=== PATIENT | male | born 1945 | race Caucasian/White ===

== ENCOUNTER 2016-07-28 18:09 | Emergency (ER) | payer MEDICARE ==
[~2016-07-28] VITALS: Ht 170.2 cm; Wt 88.5 kg
[2016-07-28 18:49] LABS: BASO % 1 % (0-3); EOS % 1 % (0-3); HEMATOCRIT 42.5 % (39.0-53.0); HEMOGLOBIN 14.4 g/dL (13.0-17.5); LYMPH # 1.4 x10^3/uL (1.0-4.8); LYMPH % 19 % (24-48); MEAN CORPUSCULAR HEMOGLOBIN 28 pg (25-35); MEAN CORPUSCULAR HGB CONC 34 g/dL (31-37); MEAN CORPUSCULAR VOLUME 81 fL (79-100); MONO % 7 % (0-9); NEUT % 73 % (31-73); PLATELET COUNT 209 x10^3/uL (140-400); RED BLOOD COUNT 5.24 x10^6/uL (4.30-5.70); RED CELL DISTRIBUTION WIDTH 14.7 % (11.5-14.5); WHITE BLOOD COUNT 7.6 x10^3/uL (4.0-11.0)
[2016-07-28 19:10] LABS: CALCIUM 9.1 mg/dL (8.5-10.1); CREATININE 1.1 mg/dL (0.7-1.3); GFR 65.8; POTASSIUM 4.2 mmol/L (3.5-5.1)
[2016-07-28 19:15] LABS: DIRECT BILIRUBIN 0.1 mg/dL (0.0-0.2); TOTAL BILIRUBIN 0.4 mg/dL (0.2-1.0); TOTAL PROTEIN 6.8 g/dL (6.4-8.2)
--- NOTE | 2016-07-28 19:24 | PHYS DOC ---
Past Medical History Past Medical History: Other Additional Past Medical Histor: FLUID ON R KNEE Past Surgical History: Tonsillectomy Additional Past Surgical Histo: L ELBOW SX Additional Information: CHEWS NICOTINE GUM Alcohol Use: Heavy Drug Use: None Adult General Chief Complaint Chief Complaint: RAPID HEART RATE HPI HPI 71-year-old male presenting to the emergency department today feeling intermittent palpitations since approximately 10:00 last night. He reports feeling a few extra heartbeats intermittently. He denies chest pain shortness of breath. Currently he denies any symptoms. Onset within 24 hours. Location chest. Duration intermittent. No alleviating or exacerbating factors. He denies the extra heartbeats lasting for more than a few seconds. Review of systems is negative for chest pain shortness of breath fevers chills nausea vomiting diaphoresis. All other review of systems is negative unless otherwise noted in history of present illness. Review of Systems Review of Systems SEE ABOVE. Allergies Allergies Allergies Coded Allergies Type Severity Reaction Last Updated Verified No Known Drug Allergies 05/16/15 No Physical Exam Physical Exam Constitutional: Well developed, well nourished, no acute distress, non-toxic appearance. [] HENT: Normocephalic, atraumatic, bilateral external ears normal, oropharynx moist, no oral exudates, nose normal. [] Eyes: PERRLA, EOMI, conjunctiva normal, no discharge. [] Neck: Normal range of motion, no tenderness, supple, no stridor. [] Cardiovascular:Heart rate regular rhythm, no murmur [] Lungs & Thorax: Bilateral breath sounds clear to auscultation [] Abdomen: Bowel sounds normal, soft, no tenderness, no masses, no pulsatile masses. [] Skin: Warm, dry, no erythema, no rash. [] Back: No tenderness, no CVA tenderness. [] Extremities: No tenderness, no cyanosis, no clubbing, ROM intact, no edema. [] Neurologic: Alert and oriented X 3, normal motor function, normal sensory function, no focal deficits noted. [] Psychologic: Affect normal, judgement normal, mood normal. [] Current Patient Data Vital Signs Vital Signs Date Time Temp Pulse Resp B/P Pulse Ox O2 Delivery O2 Flow Rate FiO2 07/28/16 19:56 68 18 178/81 96 Room Air 07/28/16 18:15 98.6 98.6 Lab Values Laboratory Tests Test 07/28/16 18:40 07/28/16 19:25 White Blood Count 7.6x10^3/uL (4.0-11.0) Red Blood Count 5.24x10^6/uL (4.30-5.70) Hemoglobin 14.4g/dL (13.0-17.5) Hematocrit 42.5% (39.0-53.0) Mean Corpuscular Volume 81fL (79-100) Mean Corpuscular Hemoglobin 28pg (25-35) Mean Corpuscular Hemoglobin Concent 34g/dL (31-37) Red Cell Distribution Width 14.7% (11.5-14.5) H Platelet Count 209x10^3/uL (140-400) Neutrophils (%) (Auto) 73% (31-73) Lymphocytes (%) (Auto) 19% (24-48) L Monocytes (%) (Auto) 7% (0-9) Eosinophils (%) (Auto) 1% (0-3) Basophils (%) (Auto) 1% (0-3) Neutrophils # (Auto) 5.5x10^3uL (1.8-7.7) Lymphocytes # (Auto) 1.4x10^3/uL (1.0-4.8) Monocytes # (Auto) 0.5x10^3/uL (0.0-1.1) Eosinophils # (Auto) 0.0x10^3/uL (0.0-0.7) Basophils # (Auto) 0.0x10^3/uL (0.0-0.2) Sodium Level 143mmol/L (136-145) Potassium Level 4.2mmol/L (3.5-5.1) Chloride Level 105mmol/L (98-107) Carbon Dioxide Level 30mmol/L (21-32) Anion Gap 8 (6-14) Blood Urea Nitrogen 15mg/dL (8-26) Creatinine 1.1mg/dL (0.7-1.3) Estimated GFR (Cockcroft-Gault) 65.8 Glucose Level 158mg/dL (70-99) H Calcium Level 9.1mg/dL (8.5-10.1) Total Bilirubin 0.4mg/dL (0.2-1.0) Direct Bilirubin 0.1mg/dL (0.0-0.2) Aspartate Amino Transferase (AST) 19U/L (15-37) Alanine Aminotransferase (ALT) 21U/L (16-63) Alkaline Phosphatase 70U/L (46-116) Troponin I Quantitative < 0.017ng/mL (0.000-0.055) Total Protein 6.8g/dL (6.4-8.2) Albumin 4.0g/dL (3.4-5.0) Lipase 137U/L (73-393) Urine Collection Type Unknown Urine Color Yellow Urine Clarity Clear Urine pH 7.0 Urine Specific [place] <=1.005 Urine Protein Negativemg/dL (NEG-TRACE) Urine Glucose (UA) Negativemg/dL (NEG) Urine Ketones (Stick) Negativemg/dL (NEG) Urine Blood Negative (NEG) Urine Nitrite Negative (NEG) Urine Bilirubin Negative (NEG) Urine Urobilinogen Dipstick 0.2mg/dL (0.2 mg/dL) Urine Leukocyte Esterase Negative (NEG) Urine RBC Occ/HPF (0-2) Urine WBC 0/HPF (0-4) Urine Squamous Epithelial Cells Occ/LPF Urine Bacteria 0/HPF (0-FEW) Laboratory Tests 07/28/16 18:40 Laboratory Tests 07/28/16 18:40 EKG EKG [] Radiology/Procedures Radiology/Procedures [] Course & Med Decision Making Course & Med Decision Making Pertinent Labs and Imaging studies reviewed. (See chart for details) [] 71-year-old male presenting to the emergency department today with intermittent palpitations. Vital signs showed hypertension otherwise unremarkable. The patient denied any hematuria vision changes or any symptomatology concerning for end organ dysfunction. Pertinent physical exam showed normal physical exam. EKG unremarkable. Chest x-ray showed no obvious infiltrate or pneumothorax. Blood work obtained which showed normal CBC normal urinalysis chemistry panel unremarkable. The patient was on telemetry monitoring for approximately 2 hours. No evidence of PACs or PVCs noted. I recommended the patient follow up with his primary care physician for possible Holter monitoring. Dragon Disclaimer Dragon Disclaimer This electronic medical record was generated, in whole or in part, using a voice recognition dictation system. Departure Departure Impression: Primary Impression: Palpitations Disposition: HOME, SELF-CARE Condition: STABLE Referrals: DELISA BROWN (PCP) Patient Instructions: Palpitations Additional Instructions: Thank you for allowing us to participate in your care today. Followup with your primary care physician in 2-3 days if your symptoms do not improve. If you do not have a primary care provider you can ask for a list of our primary care providers. Return to the emergency department you have any new or concerning findings. This should be evaluated by the primary care physician and any necessary consulting services for continued management within a few days after discharge. Return to emergency room if you have any new or concerning symptoms including but not limited to fever, chills, nausea, vomiting, intractable pain, any new rashes, chest pain, shortness of air, uncontrolled bleeding, difficulty breathing, and/or vision loss. DANGELO CHU MD Jul 28, 2016 19:24
[2016-07-28 19:36] LABS: BILIRUBIN,URINE NEGATIVE (NEG); GLUCOSE,URINE NEGATIVE (NEG); NITRITE,URINE NEGATIVE (NEG); PROTEIN,URINE NEGATIVE (NEG-TRACE); UROBILINOGEN,URINE 0.2 mg/dL (0.2 mg/dL)
[2016-07-28 19:51] LABS: BACTERIA,URINE 0 /HPF (0-FEW); RBC,URINE OCC /HPF (0-2); SQUAMOUS EPITHELIAL CELL,UR OCC /LPF; WBC,URINE 0 /HPF (0-4)
[2016-07-28 20:56] VITALS: BP 172/85
--- NOTE | 2016-07-29 06:27 | EKG ---
[facility] [address] [place] [address] Test Date: 2016-07-28 Test Time: 18:19:45 Pat Name: KAILA ULLOA Department: Room: Gender: M Cotton Inspector: : 1945 Requested By: DANGELO CHU Order Number: [id number] Reading MD: Measurements Intervals Gray Rate: 82 P: 34 OH: 146 QRS: 27 QRSD: 86 T: 51 QT: 390 QTc: 459 Interpretive Statements SINUS RHYTHM NORMAL ECG RI6.01 Unconfirmed report No previous ECG available for comparison
--- NOTE | 2016-07-29 08:44 | RAD ---
EXAM: Chest one view. HISTORY: Tachycardia. COMPARISON: 05/16/2015. FINDINGS: A frontal view of the chest is obtained. There are no confluent infiltrates. There is no pneumothorax or pleural effusion. The heart is not enlarged. There are atherosclerotic calcifications of the aorta. IMPRESSION: 1. No confluent infiltrates.
== END 2016-07-28 21:10 | disposition home or self-care (01) ==
LOC: ER 18:16
DX: R00.2 Palpitations (principal); R00.0 Tachycardia, unspecified; F17.220 Nicotine dependence, chewing tobacco, uncomplicated; F10.10 Alcohol abuse, uncomplicated
CPT/HCPCS: 36415; 71010; 80048; 80076; 81001; 83690; 84484; 85027; 93005; 99285-25

== ENCOUNTER 2020-02-28 13:13 | Emergency (ER) | payer MEDICARE ==
[~2020-02-28] VITALS: Ht 167.6 cm; Wt 81.8 kg
[~2020-02-28 13:13] MED LIST: AMLO5TAB10 PO; ASPI-886 PO; FLEC50TA PO; MECL-75 PO; METO-239 PO
--- NOTE | 2020-02-28 15:31 | ED.ADGEN ---
Past Medical History Past Medical History: A-Fib, Hypertension, Kidney Stone, Other Additional Past Medical Histor: FLUID ON R KNEE, VERTIGO Past Surgical History: Tonsillectomy Additional Past Surgical Histo: L ELBOW SX Smoking Status: Former Smoker Alcohol Use: Heavy Drug Use: None Adult General Chief Complaint Chief Complaint: Palpitations HPI HPI Patient is a 74 year old male with irregular heartbeat. He was discharged from the hospital for paroxysmal atrial fibrillation normal sinus rhythm yesterday. Has medications changed by cardiology. Was previously on 50 of metoprolol twice daily which was reduced to 25 mg twice daily started on flecainide. Patient said he felt an irregular heartbeat starting around 1230. He states that he has not had any diaphoresis, lightheadedness, chest pain, shortness of breath. Review of Systems Review of Systems Constitutional: Denies fever or chills. [] Eyes: Denies change in visual acuity. [] HENT: Denies nasal congestion or sore throat. [] Respiratory: Denies cough or shortness of breath. [] Cardiovascular: Denies chest pain or edema. [] Irregular heartbeat GI: Denies abdominal pain, nausea, vomiting, bloody stools or diarrhea. [] : Denies dysuria. [] Musculoskeletal: Denies back pain or joint pain. [] Integument: Denies rash. [] Neurologic: Denies headache, focal weakness or sensory changes. [] Endocrine: Denies polyuria or polydipsia. [] Lymphatic: Denies swollen glands. [] Psychiatric: Denies depression or anxiety. [] Allergies Allergies Allergies Coded Allergies Type Severity Reaction Last Updated Verified No Known Drug Allergies 05/16/15 No Physical Exam Physical Exam Constitutional: Well developed, well nourished, no acute distress, non-toxic appearance. [] HENT: Normocephalic, atraumatic, bilateral external ears normal, oropharynx moist, no oral exudates, nose normal. [] Eyes: PERRLA, EOMI, conjunctiva normal, no discharge. [] Neck: Normal range of motion, no tenderness, supple, no stridor. [] Cardiovascular: Irregularly irregular heartbeat Lungs & Thorax: Bilateral breath sounds clear to auscultation [] Abdomen: Bowel sounds normal, soft, no tenderness, no masses, no pulsatile masses. [] Skin: Warm, dry, no erythema, no rash. [] Back: No tenderness, no CVA tenderness. [] Extremities: No tenderness, no cyanosis, no clubbing, ROM intact, no edema. [] Neurologic: Alert and oriented X 3, normal motor function, normal sensory function, no focal deficits noted. [] Psychologic: Affect normal, judgement normal, mood normal. [] Current Patient Data Vital Signs Vital Signs Date Time Temp Pulse Resp B/P (MAP) Pulse Ox O2 Delivery O2 Flow Rate FiO2 02/28/20 13:25 98.7 92 15 162/82 (108) 99 Room Air 98.7 EKG EKG Atrial fibrillation, heart rate 127, no ST elevation or depression.[] Interpretation Time: 1328 Radiology/Procedures Radiology/Procedures [] Course & Med Decision Making Course & Med Decision Making Pertinent Labs and Imaging studies reviewed. (See chart for details) Patient is in A. fib now. Discussed with cardiology midlevel, Sophia, she will discussed the case with Dr. Maldonado and they will call the patient tomorrow. At this time she recommends increasing his metoprolol back to his previous 50 mill grams twice daily and continue his aspirin. Patient went ahead and took his second dose of 50 mg metoprolol for the day at 330 while in the ER. Discussed return to emergency department if symptoms worsen, but to expect a call and follow-up with cardiology tomorrow regarding anticoagulation. [] Dragon Disclaimer Dragon Disclaimer This electronic medical record was generated, in whole or in part, using a voice recognition dictation system. Departure Departure Impression: Primary Impression: Paroxysmal atrial fibrillation Disposition: 01 HOME, SELF-CARE Condition: STABLE Referrals: DELISA BROWN (PCP) Patient Instructions: Atrial Fibrillation, [id number] Additional Instructions: Dr. Maldonado will follow-up with you tomorrow regarding possible anticoagulation. Resume taking metoprolol 50 mg twice daily, may skip tonight's dose. Take other medications as prescribed. Return to emergency department if having chest pain or lightheaded with sustained rapid heart rate. VIRGINIA MEMBRENO MD Feb 28, 2020 15:31
[2020-02-28 16:23] VITALS: BP 142/89
== END 2020-02-28 16:45 | disposition home or self-care (01) ==
LOC: ER 13:13
DX: I48.0 Paroxysmal atrial fibrillation (principal); I10 Essential (primary) hypertension; Z87.891 Personal history of nicotine dependence; F10.20 Alcohol dependence, uncomplicated; Y90.9 Presence of alcohol in blood, level not specified
CPT/HCPCS: 93005; 99285

== ENCOUNTER 2020-05-17 17:53 | Emergency (ER) | payer MEDICARE ==
[~2020-05-17] VITALS: Ht 170.2 cm; Wt 71.0 kg
[~2020-05-17 17:53] MED LIST changes: +AMIO200T6 PO; +AMIO400T5 PO; +AMLO-186 PO; -AMLO5TAB10 PO
--- NOTE | 2020-05-17 18:05 | PHYS DOC ---
Past Medical History Past Medical History: A-Fib, Hypertension, Kidney Stone Additional Past Medical Histor: FLUID ON R KNEE, VERTIGO Past Surgical History: Tonsillectomy Additional Past Surgical Histo: L ELBOW SX Smoking Status: Former Smoker Alcohol Use: Heavy Drug Use: None General Adult EDM: Chief Complaint: Palpitations HPI: HPI: Patient is a 75 year old male who arrives via EMS with chief complaint of palpitations. Patient's been in his normal state of health and had a run of irregular heartbeat but states it was never over 100 bpm that lasted about 20 minutes and resolve just prior to arrival. She denies any recent illnesses such as fever, chills, cough or shortness of breath. Patient any chest pain or shortness of breath associated with the incident. Patient has had occasional arrhythmias over the last few weeks but nothing to this extent. Patient has a [employer] loop monitor in place. Patient states his systolic blood pressure was in the 200s. notes that he has had increased sodium intake over the last 36 hours. Review of Systems: Review of Systems: Constitutional: Denies fever or chills. [] Eyes: Denies change in visual acuity. [] HENT: Denies nasal congestion or sore throat. [] Respiratory: Denies cough or shortness of breath. [] Cardiovascular: Denies chest pain or edema. [] Patient had an episode of palpitations GI: Denies abdominal pain, nausea, vomiting, bloody stools or diarrhea. [] : Denies dysuria. [] Musculoskeletal: Denies back pain or joint pain. [] Integument: Denies rash. [] Neurologic: Denies headache, focal weakness or sensory changes. [] Endocrine: Denies polyuria or polydipsia. [] Lymphatic: Denies swollen glands. [] Psychiatric: Denies depression or anxiety. [] Heart Score: HEART Score for Chest Pain: HEART Score for Chest Pain Response (Comments) Value History Slighlty/Non-Suspicious 0 ECG Normal 0 Age > 65 2 Risk Factors 1 or 2 Risk Factors 1 Troponin < Normal Limit 0 Total 3 Risk Factors: Risk Factors: DM, Current or recent (<one month) smoker, HTN, HLP, family history of CAD, obesity. Risk Scores: Score 0 - 3: 2.5% MACE over next 6 weeks - Discharge Home Score 4 - 6: 20.3% MACE over next 6 weeks - Admit for Clinical Observation Score 7 - 10: 72.7% MACE over next 6 weeks - Early Invasive Strategies Current Medications: Active Scripts Active Reported Amiodarone Hcl 200 Mg Tablet 1 Tab PO DAILY Amiodarone Hcl 400 Mg Tablet 1 Tab PO BID 7 Days Meclizine Hcl 25 Mg Tablet 1 Tab PO PRN QID PRN Aspirin Ec (Aspirin) 81 Mg Tablet.dr 1 Tab PO DAILY Amlodipine Besylate 5 Mg Tablet 5 Mg PO DAILY Allergies: Allergies: Allergies Coded Allergies Type Severity Reaction Last Updated Verified No Known Drug Allergies 05/16/15 No Physical Exam: PE: Constitutional: Well developed, well nourished, no acute distress, non-toxic appearance. [] HENT: Normocephalic, atraumatic, bilateral external ears normal, oropharynx moist, , nose normal. [] Eyes: PERRLA, EOMI, conjunctiva normal, no discharge. [] Neck: Normal range of motion, no tenderness, supple, no stridor. [] Cardiovascular:Heart rate regular rhythm, peripheral pulses are intact, cap refills less than 2 seconds Lungs & Thorax: Bilateral breath sounds clear, no respiratory stress Abdomen: soft, no tenderness, no masses, no pulsatile masses. [] Skin: Warm, dry, no erythema, no rash. [] Back: No tenderness, no CVA tenderness. [] Extremities: No tenderness, no cyanosis, no clubbing, ROM intact, no edema. [] Neurologic: Alert and oriented X 3, normal motor function, normal sensory function, no focal deficits noted. [] Psychologic: Affect normal, judgement normal, mood normal. [] Current Patient Data: Labs: Laboratory Tests Test 05/17/20 18:00 White Blood Count 7.7 x10^3/uL Red Blood Count 5.16 x10^6/uL Hemoglobin 14.5 g/dL Hematocrit 43.2 % Mean Corpuscular Volume 84 fL Mean Corpuscular Hemoglobin 28 pg Mean Corpuscular Hemoglobin Concent 34 g/dL Red Cell Distribution Width 14.2 % Platelet Count 223 x10^3/uL Neutrophils (%) (Auto) 73 % Lymphocytes (%) (Auto) 17 % Monocytes (%) (Auto) 8 % Eosinophils (%) (Auto) 1 % Basophils (%) (Auto) 1 % Neutrophils # (Auto) 5.6 x10^3/uL Lymphocytes # (Auto) 1.3 x10^3/uL Monocytes # (Auto) 0.6 x10^3/uL Eosinophils # (Auto) 0.1 x10^3/uL Basophils # (Auto) 0.1 x10^3/uL Sodium Level 143 mmol/L Potassium Level 3.9 mmol/L Chloride Level 105 mmol/L Carbon Dioxide Level 28 mmol/L Anion Gap 10 Blood Urea Nitrogen 20 mg/dL Creatinine 1.2 mg/dL Estimated GFR (Cockcroft-Gault) 58.9 BUN/Creatinine Ratio 17 Glucose Level 145 mg/dL Calcium Level 8.5 mg/dL Magnesium Level 2.1 mg/dL Total Bilirubin 0.2 mg/dL Aspartate Amino Transf (AST/SGOT) 13 U/L Alanine Aminotransferase (ALT/SGPT) 26 U/L Alkaline Phosphatase 64 U/L Troponin I Quantitative < 0.017 ng/mL Total Protein 6.6 g/dL Albumin 3.7 g/dL Albumin/Globulin Ratio 1.3 Vital Signs: Vital Signs Date Time Temp Pulse Resp B/P (MAP) Pulse Ox O2 Delivery O2 Flow Rate FiO2 05/17/20 18:00 98.5 86 184/86 (118 100 Room Air 98.5 EKG: EKG: [EKG interpreted by me normal sinus rhythm with rate of 78 normal axis normal intervals normal ST segments] Radiology/Procedures: Radiology/Procedures: [][facility] [address] [place] [address] IMAGING REPORT Signed PATIENT: KAILA ULLOA ACCOUNT: [id number] : 1945 LOCATION: ER AGE: 75 SEX: M EXAM STATUS: REG ER ORD. PHYSICIAN: SERG CHARLES MD REASON: palpitations PROCEDURE: PORTABLE CHEST 1V Exam: Chest one view INDICATION: Palpitations TECHNIQUE: Frontal view of the chest Comparisons: 03/19/2020 FINDINGS: The cardiomediastinal silhouette and pulmonary vessels are within normal limits. The lung and pleural spaces are clear. IMPRESSION: No acute cardiopulmonary process. Electronically signed by: Marysol Morales MD (05/17/2020 6:32 PM) [id number] DICTATED and SIGNED BY: MARYSOL MORALES MD DATE: 05/17/20 [id number] 0 Course & Med Decision Making: Course & Med Decision Making Pertinent Labs and Imaging studies reviewed. (See chart for details) [] 75-year-old male presents with palpitations. Patient denies any chest pain or shortness of breath. Patient denies any recent illnesses. Patient's work-up is unremarkable. Discussed the case with Dr. Christopher who states that patient did not have any episodes of ventricular tachycardia he can go home. I had the patient's loop monitor interrogated by [employer] and spoke with customer relations representative who states the patient had no recordable events today or recently. He states the last recorded event was on March 22 where he had an episode of atrial fib, SVT and ventricular tachycardia. Patient is already seen his camera repairer regarding this episode. Patient remains asymptomatic in the ER and his blood pressure is down to 166 at 7 PM. Patient took his home amlodipine and amiodarone. Patient stable for discharge and outpatient follow-up. Vipulon Disclaimer: Adrianne Disclaimer: This electronic medical record was generated, in whole or in part, using a voice recognition dictation system. Departure Departure Impression: Primary Impression: Palpitations Disposition: 01 DC HOME SELF CARE/HOMELESS Condition: STABLE Referrals: DELISA BROWN (PCP) GEORGES AVINA MD 2-3 days Patient Instructions: Palpitations Additional Instructions: EMERGENCY DEPARTMENT GENERAL DISCHARGE INSTRUCTIONS THANK YOU for coming to [facility] Emergency Department (ED) today and trusting us with your care. We trust that you had a positive experience in our Emergency Department. If you wish to speak to the department Management you can contact e line department supervisor at . YOUR FOLLOW UP INSTRUCTIONS ARE FOLLOWS: Do you have a private doctor? If you do not have a private doctor, please ask for a resource list of physicians or clinics that may be able to assist you with follow up care. The Emergency Physician has interpreted your x-rays. The X-ray specialist will also review them. If there is a change in the findings you will be notified in 48 hours when at all possible. A lab test or lab culture may have been done, your results will be reviewed and you will be notified if you need a change in treatment. ADDITIONAL INSTRUCTIONS AND INFORMATION Your care today has been supervised by a physician who is specially trained in emergency care. Many problems require more than one evaluation for a complete diagnosis and treatment. We recommend that you schedule your follow up appointment as recommended to ensure complete treatment of your illness or injury. If you are unable to obtain follow up care and continue to have a problem, or if your condition worsens we recommend that you return to the ED. We are not able to safely determine your condition over the phone nor are we able to give sound medical advice over the phone. For these safety reasons, if you call for medical advice we will ask you to come to the ED for further evaluation If you have any questions regarding these discharge instructions please call the ED at . SAFETY INFORMATION In the interest of safety, wellness, and injury prevention; we encourage you to wear your seatbelt, if you smoke; quit smoking, and we encourage your family to use protective helmet for bicycling and other sporting events that present an increased risk for head injury. IF YOUR SYMPTOMS WORSEN OR NEW SYMPTOMS DEVELOP, OR YOU HAVE CONCERNS ABOUT YOUR CONDITION; OR IF YOUR CONDITION WORSENS WHILE YOU ARE WAITING FOR YOUR FOLLOW UP APPOINT MENT; EITHER CONTACT YOUR PRIMARY CARE DOCTOR, THE PHYSICIAN WHOSE NAME AND NUMBER YOU WERE GIVEN, OR RETURN TO THE ED IMMEDIATELY. SERG CHARLES MD May 17, 2020 18:05
[2020-05-17 18:19] LABS: BASO # 0.1 x10^3/uL (0.0-0.2); BASO % 1 % (0-3); EOS # 0.1 x10^3/uL (0.0-0.7); EOS % 1 % (0-3); HEMATOCRIT 43.2 % (39.0-53.0); HEMOGLOBIN 14.5 g/dL (13.0-17.5); LYMPH # 1.3 x10^3/uL (1.0-4.8); LYMPH % 17 % (24-48); MEAN CORPUSCULAR HEMOGLOBIN 28 pg (25-35); MEAN CORPUSCULAR HGB CONC 34 g/dL (31-37); MEAN CORPUSCULAR VOLUME 84 fL (79-100); MONO # 0.6 x10^3/uL (0.0-1.1); MONO % 8 % (0-9); NEUT # 5.6 x10^3/uL (1.8-7.7); NEUT % 73 % (31-73); PLATELET COUNT 223 x10^3/uL (140-400); RED BLOOD COUNT 5.16 x10^6/uL (4.30-5.70); RED CELL DISTRIBUTION WIDTH 14.2 % (11.5-14.5); WHITE BLOOD COUNT 7.7 x10^3/uL (4.0-11.0)
[2020-05-17 18:30] LABS: CALCIUM 8.5 mg/dL (8.5-10.1); CREATININE 1.2 mg/dL (0.7-1.3); GFR 58.9; POTASSIUM 3.9 mmol/L (3.5-5.1)
--- NOTE | 2020-05-17 18:35 | RAD ---
Exam: Chest one view INDICATION: Palpitations TECHNIQUE: Frontal view of the chest Comparisons: 03/19/2020 FINDINGS: The cardiomediastinal silhouette and pulmonary vessels are within normal limits. The lung and pleural spaces are clear. IMPRESSION: No acute cardiopulmonary process. Electronically signed by: Marysol Olmos MD (05/17/2020 6:32 PM) [id number]
[2020-05-17 18:36] LABS: ALBUMIN 3.7 g/dL (3.4-5.0); ALBUMIN/GLOBULIN RATIO 1.3 (1.0-1.7); MAGNESIUM 2.1 mg/dL (1.8-2.4); TOTAL BILIRUBIN 0.2 mg/dL (0.2-1.0); TOTAL PROTEIN 6.6 g/dL (6.4-8.2)
[2020-05-17 18:54] VITALS: BP 166/79
== END 2020-05-17 19:23 | disposition home or self-care (01) ==
LOC: ER 17:53
DX: R00.2 Palpitations (principal); R00.0 Tachycardia, unspecified; I48.91 Unspecified atrial fibrillation; I10 Essential (primary) hypertension; F10.20 Alcohol dependence, uncomplicated; Y90.9 Presence of alcohol in blood, level not specified; Z87.891 Personal history of nicotine dependence
CPT/HCPCS: 36415; 71045; 80053; 83735; 84484; 85025; 99285-25

== ENCOUNTER 2020-06-06 10:51 | Emergency (ER) | payer MEDICARE ==
[~2020-06-06] VITALS: Ht 167.6 cm; Wt 81.0 kg
--- NOTE | 2020-06-06 11:11 | PHYS DOC ---
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 He states he does have palpitations from time to time has been going on for last month or more. He denies chest pain, nausea although he states he does have a lack of appetite, headache, fever, cough, shortness of breath, dizziness, focal weakness, vision changes, numbness, diarrhea, abdominal pain, vomiting. He states he is not surrounding dialysis been sick. Patient does have a history of A. fib of which he takes amiodarone, hypertension, kidney stones, former smoker but still chews Nicorette gum. He is on a baby aspirin daily. Patient denies any pain at this time. Review of Systems: Review of Systems: Constitutional: Denies fever or chills. [] Eyes: Denies change in visual acuity. [] HENT: Denies nasal congestion or sore throat. [] Respiratory: Denies cough or shortness of breath. [] Cardiovascular: Denies chest pain or edema. + Palpitations [] GI: Denies abdominal pain, nausea, vomiting, bloody stools or diarrhea. [] : Denies dysuria. [] Musculoskeletal: Denies back pain or joint pain. + Bilateral arm tingling [] Integument: Denies rash. [] Neurologic: Denies headache, focal weakness or sensory changes. [] Endocrine: Denies polyuria or polydipsia. [] Lymphatic: Denies swollen glands. [] Psychiatric: Denies depression or anxiety. [] Heart Score: HEART Score for Chest Pain: HEART Score for Chest Pain Response (Comments) Value History Slighlty/Non-Suspicious 0 ECG Normal 0 Age > 65 2 Risk Factors 1 or 2 Risk Factors 1 Troponin < Normal Limit 0 Total 3 Risk Factors: Risk Factors: DM, Current or recent (<one month) smoker, HTN, HLP, family history of CAD, obesity. Risk Scores: Score 0 - 3: 2.5% MACE over next 6 weeks - Discharge Home Score 4 - 6: 20.3% MACE over next 6 weeks - Admit for Clinical Observation Score 7 - 10: 72.7% MACE over next 6 weeks - Early Invasive Strategies Allergies: Allergies: Allergies Coded Allergies Type Severity Reaction Last Updated Verified No Known Drug Allergies 05/16/15 No Physical Exam: PE: Constitutional: Well developed, well nourished, no acute distress, non-toxic appearance. [] HENT: Normocephalic, atraumatic, bilateral external ears normal, oropharynx moist, no oral exudates, nose normal. [] Eyes: PERRLA, EOMI, conjunctiva normal, no discharge. [] Neck: Normal range of motion, no tenderness, supple, no stridor. [] Cardiovascular:Heart rate regular rhythm, no murmur [] Lungs & Thorax: Bilateral breath sounds clear to auscultation [] Abdomen: Bowel sounds normal, soft, no tenderness, no masses, no pulsatile masses. [] Skin: Warm, dry, no erythema, no rash. [] Back: No tenderness, no CVA tenderness. [] Extremities: No tenderness, no cyanosis, no clubbing, ROM intact, no edema. [] Neurologic: Alert and oriented X 3, normal motor function, normal sensory function, no focal deficits noted. [] Psychologic: Affect normal, judgement normal, mood normal. Normal physical findings [] EKG: EK and read by Dr Guthrie as Sinus Rhythm and no STEMI Radiology/Procedures: Radiology/Procedures: [] Impression: [facility] [address] [place] [address] IMAGING REPORT Signed PATIENT: KAILA ULLOA ACCOUNT: [id number] : 1945 LOCATION: ER AGE: 75 SEX: M EXAM STATUS: PRE ER ORD. PHYSICIAN: JOCELYNN MCKEE APRN REASON: CHEST PAIN PROCEDURE: CHEST PA & LATERAL EXAM: XR CHEST 2V INDICATION: Reason: CHEST PAIN / Spl. Instructions: / History: . TECHNIQUE: Single view COMPARISON: 05/17/2020 FINDINGS: Left chest event monitor still present. The heart size is normal. The great vessels show aortic calcifications and otherwise appear unremarkable. There is no hilar or mediastinal mass. The lungs are clear. There is no pleural effusion or pneumothorax. Bilateral acromioclavicular joint degenerative change. IMPRESSION: No active cardiopulmonary disease. Electronically signed by: Ben Wan MD (06/06/2020 11:50 AM) [id number] DICTATED and SIGNED BY: BEN WAN MD DATE: 06/06/20 [id number] 0 Course & Med Decision Making: Course & Med Decision Making Pertinent Labs and Imaging studies reviewed. (See chart for details) Alert and oriented x4. Ambulatory with a steady gait. No focal weaknesses. No extremity edema. Skin pink warm and dry. Speaks in full complete sentences. PERRLA. Lungs are clear to auscultation all lobes. Vital signs are within normal limits. Patient is given a full aspirin in the ED. EKG shows sinus rhythm and no STEMI. No extremity edema. Full sensations intact. Blood work is unremarkable. Chest Xray shows no acute findings. Two Troponins negative. Patient has no worsening of symptoms or new symptoms. I have spoken to Dr Knowles concerning this patient and patient findings. He states that he agrees the patient can go home and follow up with his doctor. [] Vipulon Disclaimer: Adrianne Disclaimer: This electronic medical record was generated, in whole or in part, using a voice recognition dictation system. Departure Departure Impression: Primary Impression: Palpitations Additional Impressions: Tingling of left upper extremity Tingling of right upper extremity Disposition: 01 DC HOME SELF CARE/HOMELESS Condition: STABLE Referrals: DELISA BROWN (PCP) GEORGES AVINA MD Patient Instructions: Palpitations, [id number] Additional Instructions: Follow up with primary care provider as soon as possible. If you begin having increased numbness or tingling or weakness to one side of your body or chest pain and shortness of air call 911 and come to emergency room. NIHSS Stroke Scale NIH Stroke Scale: NIH Stroke Scale Response (Comments) Value Level of Consciousness: 0 Alert/Responsive 0 LOC Questions: 0 Answers both correctly 0 LOC Commands: 0 Performs both tasks 0 Best Gaze: 0 Normal 0 Visual: 0 No visual loss 0 Facial Palsy: 0 Normal, symmetrical 0 Motor - Left Arm 0 No drift 0 Motor - Right Arm 0 No drift 0 Motor - Left Leg 0 No drift 0 Motor: Right Leg 0 No drift 0 Limb Ataxia: 0 Absent 0 Sensory: 0 No loss 0 Best Language: 0 Normal 0 Dysathria: 0 Normal 0 Extinction and Inattention: 0 Normal 0 Total 0 JOCELYNN MCKEE APRN Jun 06, 2020 11:11
[2020-06-06] MEDS ORDERED: ASPIRIN 325 MG TABLET PO ONE (11:15)
[2020-06-06 11:27] LABS: BASO % 1 % (0-3); EOS % 0 % (0-3); HEMATOCRIT 43.6 % (39.0-53.0); HEMOGLOBIN 14.6 g/dL (13.0-17.5); LYMPH % 13 % (24-48); MEAN CORPUSCULAR HEMOGLOBIN 28 pg (25-35); MEAN CORPUSCULAR HGB CONC 34 g/dL (31-37); MEAN CORPUSCULAR VOLUME 83 fL (79-100); MONO # 0.4 x10^3/uL (0.0-1.1); MONO % 5 % (0-9); NEUT % 81 % (31-73); PLATELET COUNT 257 x10^3/uL (140-400); RED BLOOD COUNT 5.26 x10^6/uL (4.30-5.70); RED CELL DISTRIBUTION WIDTH 14.2 % (11.5-14.5); WHITE BLOOD COUNT 7.4 x10^3/uL (4.0-11.0)
[2020-06-06 11:33] LABS: CALCIUM 8.7 mg/dL (8.5-10.1); CREATININE 1.2 mg/dL (0.7-1.3); GFR 58.9; POTASSIUM 4.2 mmol/L (3.5-5.1)
[2020-06-06 11:39] LABS: ALBUMIN 3.9 g/dL (3.4-5.0); ALBUMIN/GLOBULIN RATIO 1.3 (1.0-1.7); MAGNESIUM 1.9 mg/dL (1.8-2.4); TOTAL BILIRUBIN 0.4 mg/dL (0.2-1.0); TOTAL PROTEIN 6.8 g/dL (6.4-8.2)
[2020-06-06 11:52] LABS: BILIRUBIN,URINE NEGATIVE (NEG); CLARITY,URINE CLEAR; COLOR,URINE YELLOW; NITRITE,URINE NEGATIVE (NEG); PROTEIN,URINE NEGATIVE (NEG-TRACE); UROBILINOGEN,URINE 0.2 mg/dL (0.2 mg/dL)
--- NOTE | 2020-06-06 11:52 | RAD ---
EXAM: XR CHEST 2V INDICATION: Reason: CHEST PAIN / Spl. Instructions: / History: . TECHNIQUE: Single view COMPARISON: 05/17/2020 FINDINGS: Left chest event monitor still present. The heart size is normal. The great vessels show aortic calcifications and otherwise appear unremarkable. There is no hilar or mediastinal mass. The lungs are clear. There is no pleural effusion or pneumothorax. Bilateral acromioclavicular joint degenerative change. IMPRESSION: No active cardiopulmonary disease. Electronically signed by: Margaux Wan MD (06/06/2020 11:50 AM) [id number]
[2020-06-06 11:59] LABS: BARBITURATES NEG (NEG); BENZODIAZEPINES NEG (NEG); CANNABINOIDS NEG (NEG); COCAINE NEG (NEG); METHADONE NEG (NEG); OPIATES NEG (NEG); PHENCYCLIDINE NEG (NEG)
[2020-06-06 12:03] LABS: AMPHETAMINE/METHAMPHETAMINE NEG (NEG)
[2020-06-06 12:05] LABS: BACTERIA,URINE 0 /HPF (0-FEW); RBC,URINE 0 /HPF (0-2); WBC,URINE OCC /HPF (0-4)
[2020-06-06 14:32] VITALS: BP 159/71
== END 2020-06-06 14:50 | disposition home or self-care (01) ==
LOC: ER 10:51
DX: R00.2 Palpitations (principal); I48.20 Chronic atrial fibrillation, unspecified; I10 Essential (primary) hypertension; Z87.442 Personal history of urinary calculi; Z87.891 Personal history of nicotine dependence; Z90.89 Acquired absence of other organs; Z98.890 Other specified postprocedural states; Z79.899 Other long term (current) drug therapy
CPT/HCPCS: 36415; 71046; 80053; 80307; 81001; 83690; 83735; 83880; 84484; 85025; 85610; 93005; 99285